=== PATIENT | male | born 1970 | race Caucasian/White ===

== ENCOUNTER 2020-01-12 12:23 | Emergency (ER) | payer OTHER ==
[~2020-01-12] VITALS: Ht 193 cm; Wt 92.9 kg
--- NOTE | 2020-01-12 12:58 | NUR ---
PT SENT FROM FOR HAVING "THE URGE TO URINATE FREQUENTLY". PT STATES HE IS HAVING A HARD TIME ON PRODUCCING URINE HOWEVER. SYMPTOMS STARTED LAST SUNDAY AFTER HIS COLONSCOPY. PCP GAVE HIM ABX AND PYRIDUM WHICH HE WILL FINISH TOMMOROW. BUT HIS SYMPTOMS HAS NO RESVOLED. PT ALSO CO OF LLQ ABD.
[2020-01-12] MEDS ORDERED: MORPHINE SULFATE 4 MG/ML, 1ML ONE (13:22)
[2020-01-12 13:26] VITALS: BP 143/76
--- NOTE | 2020-01-12 13:26 | NUR ---
PT MEDICATED PER MAR
[2020-01-12] MEDS ORDERED: MORPHINE SULFATE 4 MG/ML, 1ML IVPush PRN (13:30)
[2020-01-12] MEDS ORDERED: SODIUM CHLORIDE FLUSH 10ML SYR IVF ONE (14:00)
--- NOTE | 2020-01-12 14:00 | NUR ---
PT REPORTS PAIN IMPROVEMENT. "IT NUMBED IT A LITTLE"
[2020-01-12 14:12] LABS: BASOPHILS # (AUTO) 0.01 x10^3/uL (0-0.1); BASOPHILS % (AUTO) 0 % (0-1); EOSINOPHILS # (AUTO) 0.11 x10^3/uL (0-0.4); EOSINOPHILS % (AUTO) 1 % (1-7); LYMPHOCYTES # (AUTO) 0.69 x10^3/uL (1-3.4); LYMPHOCYTES % (AUTO) 7 % (22-44); MD NO; MEAN CORPUSCULAR HEMOGLOBIN 30.5 pg (27.5-34.5); MEAN PLATELET VOLUME 9.1 fL (7.4-10.4); MONOCYTES # (AUTO) 0.38 x10^3/uL (0.2-0.8); MONOCYTES % (AUTO) 4 % (2-9); NEUTROPHILS # (AUTO) 8.19 x10^3/uL (1.8-6.8); NEUTROPHILS % (AUTO) 87 % (42-75); PLATELET COUNT 226 x10^3/uL (130-400); RED BLOOD COUNT 4.72 x10^6/uL (4.38-5.82); RED CELL DISTRIBUTION WIDTH 13.6 % (9.4-14.8)
[2020-01-12 14:21] LABS: MICROSCOPIC INDICATED
[2020-01-12 14:23] LABS: ANION GAP 5 mmol/L (5-15); CALCIUM 8.9 mg/dL (8.5-10.1); CHLORIDE 108 mmol/L (98-107); CREATININE 1.24 mg/dL (0.7-1.3)
== END 2020-01-12 14:48 | disposition home or self-care (01) ==
LOC: ED 14:40
DX: N20.1 Calculus of ureter (principal); N23 Unspecified renal colic
CPT/HCPCS: 36415; 74176; 80048; 81001; 82040; 85025; 87086; 96374; 99284; J2270

== ENCOUNTER 2020-09-17 15:21 | Outpatient (CLI) | payer OTHER | END 2020-09-17 23:59 | disposition home or self-care (01) | LOC: CVU 15:21 | PROVIDERS: ATTEND Internal Medicine Cardiovascular Disease | DX: R01.1 Cardiac murmur, unspecified (principal); R07.89 Other chest pain | CPT/HCPCS: 93306; 93356 ==

== ENCOUNTER 2021-03-18 12:03 | Outpatient (CLI) | payer OTHER | END 2021-03-18 23:59 | disposition home or self-care (01) | LOC: CFH 12:03 | PROVIDERS: ATTEND Internal Medicine Cardiovascular Disease | DX: R01.1 Cardiac murmur, unspecified (principal); R07.89 Other chest pain | CPT/HCPCS: 78452; 93017; A9502 ==

== ENCOUNTER → 2021-04-04 | Day surgery (SDC) | payer OTHER ==
[~2021-04-04] VITALS: Ht 193 cm; Wt 81.8 kg
[~2021-04-04] MED LIST: ASPIRIN 325 MG TABLET EC ONE; ASPIRIN 325 MG TABLET EC PO ONE; FENTANYL PF 100 MCG/2ML ONE; HEPARIN 1,000 UNITS/ML, 10ML ONE; LIDOCAINE-MPF 1%, 5ML ONE; MIDAZOLAM 1 MG/ML, 2ML ONE; OMEP40CA8 PO; ROSU10TA2 PO; SODIUM CHLORIDE 0.9% 1,000 ML IV SCH; VERAPAMIL 2.5 MG/ML, 2ML ONE
[2021-04-04 10:48] VITALS: BP 115/74
[2021-04-04 11:29] LABS: BASOPHILS % (AUTO) 1 % (0-1); EOSINOPHILS % (AUTO) 7 % (1-7); LYMPHOCYTES % (AUTO) 26 % (22-44); MEAN CORPUSCULAR HEMOGLOBIN 31.2 pg (27.5-34.5); MEAN PLATELET VOLUME 9.4 fL (7.4-10.4); MONOCYTES % (AUTO) 6 % (2-9); NEUTROPHILS % (AUTO) 60 % (42-75); PLATELET COUNT 212 x10^3/uL (130-400); RED BLOOD COUNT 4.71 x10^6/uL (4.38-5.82); RED CELL DISTRIBUTION WIDTH 13.6 % (9.4-14.8)
[2021-04-04 11:37] LABS: ANION GAP 6 mmol/L (5-15); CHLORIDE 107 mmol/L (98-107); CREATININE 0.83 mg/dL (0.7-1.3)
== END | disposition home or self-care (01) ==
LOC: CACL 10:22
PROVIDERS: ATTEND Internal Medicine Cardiovascular Disease
DX: R94.39 Abnormal result of other cardiovascular function study (principal); E78.2 Mixed hyperlipidemia; Z79.899 Other long term (current) drug therapy; Z88.5 Allergy status to narcotic agent
CPT/HCPCS: 36415; 80048; 85025; 93458; 99156; C1769; C1894; J1644; J2250; J3010; Q9967